=== PATIENT | male | born 1985 | race Caucasian/White ===

== ENCOUNTER 2017-04-24 08:46 | Emergency (ER) | payer OTHER ==
[~2017-04-24] VITALS: Ht 185.4 cm; Wt 119.4 kg
[2017-04-24 08:50] VITALS: Ht 185.4 cm; Wt 119.4 kg
[2017-04-24] MEDS ORDERED: LEVO25TA PO (09:22)
--- NOTE | 2017-04-24 09:30 | DIAGNOSTIC IMAGING REPORT ---
L KNEE 1 OR 2 VIEWS ROUTINE CLINICAL HISTORY: Left knee pain pain COMPARISON: None. DISCUSSION: The bones and joint spaces appear intact. There is no evidence of fracture, dislocation or bony disease. Very small joint effusion. Minimal osteophytic reaction from the tibial spines. IMPRESSION: No acute bony abnormality. Minimal degenerative change. Very small joint effusion. The above report was generated using voice recognition software. It may contain grammatical, syntax or spelling errors. Electronically signed by: Blaen Correa M.D. 04/24/2017 9:28 AM Dictated Date/Time: 04/24/2017 9:28 AM
--- NOTE | 2017-04-24 09:45 | EMERGENCY ROOM VISIT NOTE ---
ED Visit Note First contact with patient: 08:57 CHIEF COMPLAINT: Left knee injury HISTORY OF PRESENT ILLNESS: This 31-year-old male presents to ER with chief complaint of left knee pain. 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 As time went on, he felt a sharp pain in the lateral aspect of his knee intermittently with certain movements. The patient states it felt like his knee was going to lock but it did not. The patient denies any giving out of the knee. The patient was instructed by his employer to come to the ER today. The patient states last evening he rested the knee, iced and elevated and took ibuprofen. REVIEW OF SYSTEMS: 6 system review was performed and was negative unless stated otherwise in history of present illness. PMH: The patient is healthy; cauliflower ear surgery SOCIAL HISTORY: Patient lives with his . The patient admits to tobacco use but denies any alcohol use. PHYSICAL EXAM: Vital Signs: Were reviewed reviewed Nurse's notes. GENERAL: 31- year-old male appears in no acute distress. MENTAL STATUS: Alert, oriented, and cooperative. LEFT KNEE: No gross bony deformity noted. No erythema or edema noted. Patient is point tenderness to palpation over the lateral joint space otherwise nontender. There is no joint effusion. The patient has full range of motion with most pain elicited with complete flexion. There is no ligamentous instability. The skin is normal and intact. EMERGENCY DEPARTMENT COURSE: The patient was offered pain medication but declined. The patient was evaluated. X-ray of the left knee was ordered and interpreted by the radiologist and myself. DIAGNOSTICS:L KNEE 1 OR 2 VIEWS ROUTINE CLINICAL HISTORY: Left knee pain pain COMPARISON: None. DISCUSSION: The bones and joint spaces appear intact. There is no evidence of fracture, dislocation or bony disease. Very small joint effusion. Minimal osteophytic reaction from the tibial spines. IMPRESSION: No acute bony abnormality. Minimal degenerative change. Very small joint effusion. The above report was generated using voice recognition software. It may contain grammatical, syntax or spelling errors. Electronically signed by: Blane Correa M.D. 04/24/2017 9:28 AM The patient was informed of the findings. The patient was placed in an Vinny wrap. The patient refused crutches. The patient was given a CD of his x-rays to take with him since he is from out of town. The patient was discharged home in stable condition. DIAGNOSIS: Sprained left knee DISCHARGE INSTRUCTIONS: Ibuprofen 600 mg every 6 hours with food for pain. Rest as much as possible over the next 2 weeks. Ice and elevation as much as possible over the next 24 hours. If symptoms are not improving and 3-4 days, recommend follow-up with occupational health or orthopedics as directed by your employer. Current/Historical Medications Scheduled Levothyroxine Sodium (Synthroid), Unknown Dose PO DAILY Allergies Coded Allergies: No Known Allergies (Unverified , 04/24/17) Vital Signs Date Time Temp Pulse Resp B/P (MAP) Pulse Ox O2 Delivery O2 Flow Rate FiO2 04/24/17 08:50 36.7 73 16 135/76 98 Room Air Departure Information Referrals No Doctor, Assigned (PCP) Patient Instructions My [facility]
[2017-04-24 09:54] VITALS: BP 136/90; PULSE 73; TEMP 36.7; O2SAT 98
== END 2017-04-24 09:59 | disposition home or self-care (01) ==
LOC: C.EDB 08:48 → C.EDA 09:59
DX: S83.92XA Sprain of unspecified site of left knee, initial encounter (principal); X58.XXXA Exposure to other specified factors, initial encounter; Y92.89 Other specified places as the place of occurrence of the external cause; Y99.0 Civilian activity done for income or pay; Z72.0 Tobacco use; Z79.899 Other long term (current) drug therapy